=== PATIENT | female | born 1975 | race Caucasian/White ===

== ENCOUNTER 2016-10-19 08:56 | Inpatient (IN) | payer MEDICAID ==
[~2016-10-19] VITALS: Ht 157.5 cm; Wt 83.5 kg
[2016-10-19] MEDS ORDERED: fentaNYL 0.05 MG/ML VIAL ONE (15:33)
[2016-10-19] MEDS ORDERED: HYDROmorphone PFS 2 MG/ML SYR ONE (15:33)
[2016-10-19] MEDS ORDERED: NEOSTIGMINE 1:1000 10 MG/10 ML VIAL IM ONE (15:34)
[2016-10-19] MEDS ORDERED: GLYCOPYRROLATE 0.2 MG/ML VIAL IV ONE (15:34)
[2016-10-19] MEDS ORDERED: DESFLURANE 240 ML BTL INH ONE (15:34)
[2016-10-19] MEDS ORDERED: DEXAMETHASONE 4 MG/ML VIAL IVP ONE (15:34)
[2016-10-19] MEDS ORDERED: ONDANSETRON 4 MG/2 ML VIAL IVP ONE (15:34)
[2016-10-19] MEDS ORDERED: ROCURONIUM 50 MG/5 ML VIAL IV ONE (15:34)
[2016-10-19] MEDS ORDERED: PROPOFOL 200 MG/20 ML VIAL IV ONE (15:34)
[2016-10-19] MEDS ORDERED: KETOROLAC 30 MG/ML VIAL IVP ONE (15:34)
[2016-10-19] MEDS ORDERED: BUPIVACAINE-MPF/EPI 0.25% 30 ML VIAL INJ ONE (15:47)
[2016-10-19] MEDS ORDERED: METHYLENE BLUE 1% 10 MG/ML AMP ONE (16:02)
[2016-10-19] MEDS ORDERED: ONDANSETRON 4 MG/2 ML VIAL IVP PRN (16:15)
[2016-10-19] MEDS ORDERED: HYDROmorphone 1 MG/ML AMP IVP PRN (16:15)
[2016-10-19] MEDS ORDERED: LACTATED RINGERS 1,000 ML IV SCH (17:23)
[2016-10-19] MEDS ORDERED: diphenhydrAMINE 50 MG/ML VIAL IVP PRN (17:25)
[2016-10-19] MEDS ORDERED: HYDROcodone/APAP 5/325 MG 1 TAB TAB PO PRN (17:55)
[2016-10-19] MEDS ORDERED: ACETAMINOPHEN 325 MG TAB PO PRN (17:55)
[2016-10-19] MEDS ORDERED: MORPHINE SULFATE 2 MG/ML SYR IVP PRN (17:55)
[2016-10-19] MEDS ORDERED: ONDANSETRON 4 MG/2 ML VIAL IV PRN (17:55)
[2016-10-19] MEDS ORDERED: MORPHINE SULFATE 4 MG/ML SYR IV PRN (17:55)
[2016-10-19 19:10] VITALS: BP 117/64
--- NOTE | 2016-10-19 19:10 | NUR ---
RECEIVED REPORT FROM OR NURSE FOR CONTINUITY OF CARE. PATIENT IS A&OX4, DROWSY FROM PROCEDURE BUT AWAKENS EASILY. DISCUSSED PLAN OF CARE WITH PATIENT AND ORIENTED TO ROOM, VERBALIZED UNDERSTANDING. SHIFT ASSESSMENT DONE, VS TAKEN, STABLE AT THIS TIME. PT C/O NAUSEA, WILL MEDICATE PER MD ORDER. NO S/S OF RESPIRATORY DISTRESS NOTED ON ROOM AIR O2 SAT 90-94%. IV TO LT HAND 20 GAUGE PATENT AND INFUSING FLUIDS WELL. PT HAS 3 INDU DRAINS WITH MINIMAL SANGUINEOUS DRAINAGE NOTED. PT HAS BINDER AROUND CHEST S/P RT MODIFIED MASTECTOMY AND LT SIMPLE MASTECTOMY. PORTACATH TO LT CHEST FROM PREVIOUS CHEMOTHERAPY. SAFETY/FALL/RESTRICTED EXTREMITY PRECAUTIONS ENFORCED AND WRISTBANDS APPLIED. SCDS IN PLACE. CALL LIGHT PLACED WITHIN REACH. FAMILY MEMBERS AT BEDSIDE. WILL CONTINUE TO MONITOR.
--- NOTE | 2016-10-19 19:25 | NUR ---
MEDICATED PATIENT WITH PRN ZOFRAN. PROVIDED CHANGE OF GOWN AND LINENS.
[2016-10-19] MEDS: NACL 0.9% 1,000 ML IV SCH (20:14)
--- NOTE | 2016-10-19 20:27 | NUR ---
DUE IV ANTIBIOTICS ADMINISTERED AND REPLACED FLUIDS TO NS PER MD ORDER.
[2016-10-19] MEDS: HYDROmorphone 1 MG/ML AMP IVP PRN (21:11)
--- NOTE | 2016-10-19 21:11 | NUR ---
PATIENT AMBULATED TO RESTROOM, VOIDED. PERFORMED PM CARE AT SINK. C/O 10/10 PAIN IN CHEST, MEDICATED PER MD ORDER.
--- NOTE | 2016-10-19 23:45 | NUR ---
VS TAKEN, STABLE. ASSISTED PATIENT TO RESTROOM, BOWEL MOVEMENT. PATIENT BACK IN BED AND MADE COMFORTABLE. CALL LIGHT WITHIN REACH.
[2016-10-20] VITALS: BP 122/60
--- NOTE | 2016-10-20 01:49 | NUR ---
PT IS SLEEPING. NO S/S OF DISTRESS OR DISCOMFORT NOTED.
[2016-10-20] MEDS: HYDROmorphone 1 MG/ML AMP IVP PRN ×4 (03:26→18:41)
--- NOTE | 2016-10-20 03:30 | NUR ---
PT HAD C/O 10/10 PAIN IN CHEST, MEDICATED PER MD ORDER. EMPTIED INDU DRAIN TO LT SIDE 25ML SANGUINOUS DRAINAGE.
[2016-10-20] MEDS: NACL 0.9% 1,000 ML IV SCH (05:08)
--- NOTE | 2016-10-20 05:55 | NUR ---
REPLACED IV FLUIDS. EMPTIED INDU DRAIN, LT SIDE INDU DRAINED 15 ML SANGUINOUS DRAINAGE, RT SIDE 40 ML SANGUINOUS BETWEEN BOTH DRAINS.
--- NOTE | 2016-10-20 07:20 | NUR ---
ENDORSED PATIENT TO DAYSHIFT RN FOR CONTINUITY OF CARE. PATIENT IS STABLE.
--- NOTE | 2016-10-20 07:21 | NUR ---
RECEIVED REPORT FROM THE DIRECTOR DECISION SUPPORT NURSE AT BEDSIDE. PT IS ALERT AND ORIENTED. NO SIGNS OF DISTRESS. NOTED THE 3 INDU DRAINS. PORTACATH ON R CHEST AND IV ON L HAND 20G NS RUNNING AT 70ML/HR. PT HAS NO COMPLAINTS AT THIS TIME. WILL BE BACK TO GET V/S AND FURTHER ASSESS PT.
[2016-10-20 08:00] VITALS: BP 115/65
--- NOTE | 2016-10-20 08:15 | NUR ---
V/S WITHIN IN NORMAL RANGE. NOTED THE BINDERS STILL IN PLACE. NOTED SOME SERISANGUINOUS DRAINAGE IN HER DRAINS. PORT-A-CATH IN PLACE. IV STILL INTACT AND DRY AND PATENT. IV INFUSING AT 70ML/HR. PT IS IN PAIN. WILL MEDICATE REQUESTED. WILL BE BACK WITH MORNING MEDS.
--- NOTE | 2016-10-20 09:11 | NUR ---
ADMINISTERED PAIN MED, DILAUDID 1MG IVP. PT TOLERATED WELL. WILL REASSESS PT. PT RESTING SUPINE, NO OTHER COMPLAINTS. ALL NEEDS MET AT THIS TIME. SAFETY PRECAUTIONS MET. WILL CONTINUE TO MONITOR.
--- NOTE | 2016-10-20 10:31 | NUR ---
PT RESTING COMFORTABLY. WATCHING TV. WILL CONTINUE TO MONITOR.
--- NOTE | 2016-10-20 11:08 | NUR ---
PATIENT HAS BEEN SCREENED AND CATEGORIZED LOW NUTRITION RISK. PATIENT WILL BE SEEN WITHIN 7 DAYS OF ADMISSION. 10/26/[address]
--- NOTE | 2016-10-20 12:50 | NUR ---
PT NEEDED TO BE PULLED UP TO SIT UP TO EAT. PT EATING LUNCH. NO COMPLAINTS AT THIS TIME. FAMILY AT BEDSIDE. WILL CONTINUE TO MONITOR.
--- NOTE | 2016-10-20 15:30 | NUR ---
PT SLEEPING SOUNDLY WITH FAMILY MEMBER AT BEDSIDE. NOTED NO SIGNS OF DISTRESS. WILL CONTINUE TO MONITOR.
[2016-10-20 16:03] VITALS: BP 121/77
--- NOTE | 2016-10-20 17:30 | NUR ---
PT IS RESTING WITH SPOUSE AT BEDSIDE. NO SIGNS OF DISTRESS. WILL CONTINUE TO MONITOR.
--- NOTE | 2016-10-20 19:20 | NUR ---
ENDORSED PT TO THE BIOLOGY ADJUNCT INSTRUCTOR NURSE AT BEDSIDE FOR CONTINUITY OF CARE. PT IS ON THE PHONE WITH SPOUSE AT BEDSIDE. PT IS IN STABLE CONDITION.
--- NOTE | 2016-10-20 19:25 | NUR ---
RECEIVED FROM AM RN IN BED SITTING UP POSITION ON THE PHONE ALERT AND ORIENTED. CALL LIGHT WITH IN USE. SPOUSE AT BEDSIDE. COSTA RICAN SPEAKING. CARE PLANS FOR THE NIGHT DISCUSSED WITH THEM. INDU IN PLACE RIGHT AND LEFT. SEROUS SANGUINOUS OUTPUT. DRESSING TO BREAST INTACT AND NO BLEEDING NOTED. ENCOURAGED TO CALL FOR ANY DOLOR SHE MIGHT HAVE. "SI" . IVF SITE LEFT HAND #20 INTACT AND NO INFILTRATION.
--- NOTE | 2016-10-20 21:10 | NUR ---
Gladys CONTE CALLED AND DISCHARGED PT. TO HOME TONIGHT. NO PRESCRIPTIONS GIVEN . WITH ORDERS TO JUST SEE HIM IN HIS OFFICE TOMORROW. INFORMED PT. AND . PT.S STATED THAT THEY WILL GO HOME TONIGHT.
--- NOTE | 2016-10-20 21:42 | NUR ---
DISCHARGED TO HOME AND WHEELED TO THE FRONT BY SACK KEEPER ACCOMPANIED BY SPOUSE IN A PRIVATE CAR. DRESSING TO BREAST S/P MASTECTOMY INTACT. NO BLEEDING NOTED. INDU RIGHT 30 ML OUTPUT SEROUS SANGUINOUS FOR BOTH AND LEFT INTACT 10 ML SEROUS SANGUINOUS OUTPUT. PT.'S SPOUSE GIVEN DISCHARGE EDUCATION S/P MASTECTOMY AND INDU OUTPUT CARE AND MEASUREMENT TILL TOMORROW PRIOR APPOINTMENT WITH Gladys CONTE. ALL BELONGINGS WITH PT. AND NOTHING LEFT BEHIND. IVF SITE DISCONTINUED. TIP INTACT AND TOLERATED WELL. BAND AID DRESSING APPLIED . NO COMPLAINTS DONE. DISCHARGE PAPER WORKS GIVEN AND EXPLAINED.
== END 2016-10-20 22:10 | disposition home or self-care (01) | DRG 362 ==
LOC: MMU 09:01 → MTU 20:23
PROVIDERS: ADMIT Surgery; ATTEND Surgery
PROC: 0HTV0ZZ Resection of Bilateral Breast, Open Approach (ICD-10-PCS; principal; 2016-10-19 09:30)
DX: C50.911 Malignant neoplasm of unspecified site of right female breast (principal); F32.9 Major depressive disorder, single episode, unspecified; Z40.01 Encounter for prophylactic removal of breast; Z92.21 Personal history of antineoplastic chemotherapy; Z15.01 Genetic susceptibility to malignant neoplasm of breast

== ENCOUNTER 2017-03-22 07:49 | Day surgery (SDC) | payer MEDICAID ==
[2017-03-18 10:12] LABS: BASOPHILS # (AUTO) 0.1 K/uL (0.00-0.22); BASOPHILS % (AUTO) 0.8 % (0.0-2.0); EOSINOPHILS # (AUTO) 0.2 K/uL (0-0.4); EOSINOPHILS % (AUTO) 2.5 % (0.0-4.0); HEMOGLOBIN 14.1 g/dL (12.0-16.0); LYMPHOCYTES # (AUTO) 1.3 K/uL (2.5-16.5); LYMPHOCYTES % (AUTO) 18.6 % (20.5-51.1); MEAN CORPUSCULAR HEMOGLOBIN 29 pg (27-31); MEAN CORPUSCULAR HGB CONC 34 g/dL (33-37); MEAN CORPUSCULAR VOLUME 87 fL (80-94); MONOCYTES # (AUTO) 0.4 K/uL (0.8-1.0); MONOCYTES % (AUTO) 6.1 % (1.7-9.3); NEUTROPHILS # (AUTO) 5.2 K/uL (1.8-7.7); PLATELET COUNT (AUTO) 248 K/uL (140-450); RED BLOOD CELL COUNT(AUTO) 4.82 MIL/uL (4.20-5.40); RED CELL DISTRIBUTION WIDTH 13.3 % (11.6-13.7); WHITE BLOOD COUNT (AUTO) 7.2 K/uL (4.8-10.8)
[2017-03-18 10:29] LABS: ALBUMIN 3.7 g/dL (3.4-5.0); ANION GAP 11.6 (8-16); CALCIUM 8.2 mg/dL (8.5-10.1); CARBON DIOXIDE 28.4 mmol/L (21-32); CREATININE 0.6 mg/dL (0.6-1.3); TOTAL BILIRUBIN 0.4 mg/dL (0.0-1.0); TOTAL PROTEIN, SERUM 7.7 g/dL (6.4-8.2)
[~2017-03-22] VITALS: Ht 160 cm; Wt 83.9 kg
[2017-03-22] MEDS ORDERED: PROPOFOL 200 MG/20 ML VIAL IV ONE (11:20)
[2017-03-22] MEDS ORDERED: MIDAZOLAM 2 MG/2 ML VIAL ONE (11:29)
[2017-03-22] MEDS ORDERED: fentaNYL 0.05 MG/ML VIAL ONE (11:29)
[2017-03-22] MEDS ORDERED: BUPIVACAINE-MPF/EPI 0.25% 30 ML VIAL INJ ONE (11:36)
[2017-03-22] MEDS ORDERED: LIDOCAINE 1% 50 ML ONE (11:36)
[2017-03-22] MEDS ORDERED: HYDROmorphone 1 MG/ML AMP IVP PRN ×2 (12:00→14:15)
[2017-03-22] MEDS ORDERED: ONDANSETRON 4 MG/2 ML VIAL IVP PRN (12:00)
[2017-03-22] MEDS ORDERED: MORPHINE SULFATE 4 MG/ML SYR IV PRN (14:15)
[2017-03-22] MEDS ORDERED: HYDROcodone/APAP 5/325 MG 1 TAB TAB PO PRN (14:15)
[2017-03-22] MEDS ORDERED: MORPHINE SULFATE 2 MG/ML SYR IVP PRN (14:15)
== END 2017-03-22 13:45 | disposition home or self-care (01) ==
LOC: MOR 07:49 → MMU 07:50 → MOR 13:45
PROVIDERS: ATTEND Surgery
DX: Z45.2 Encounter for adjustment and management of vascular access device (principal); Z85.3 Personal history of malignant neoplasm of breast; I12.9 Hypertensive chronic kidney disease with stage 1 through stage 4 chronic kidney disease, or unspecified chronic kidney disease; E11.22 Type 2 diabetes mellitus with diabetic chronic kidney disease; N18.9 Chronic kidney disease, unspecified; D64.9 Anemia, unspecified; F03.90 Unspecified dementia, unspecified severity, without behavioral disturbance, psychotic disturbance, mood disturbance, and anxiety; J45.909 Unspecified asthma, uncomplicated; G40.909 Epilepsy, unspecified, not intractable, without status epilepticus; K21.9 Gastro-esophageal reflux disease without esophagitis; E66.9 Obesity, unspecified; F32.9 Major depressive disorder, single episode, unspecified; F17.210 Nicotine dependence, cigarettes, uncomplicated
CPT/HCPCS: 36415; 36590; 71010; 80053; 81025; 85025; 88300; 93005; J0690; J2001; J2250; J2704; J3010; J3490; J7060; J7120

== ENCOUNTER 2018-02-27 08:00 | Day surgery (SDC) | payer OTHER ==
[~2018-02-27] VITALS: Ht 160 cm; Wt 78.9 kg
[2018-02-27] MEDS ORDERED: BUPIVACAINE-MPF 0.25% 30 ML VIAL INJ ONE (11:29)
[2018-02-27] MEDS ORDERED: SEVOFLURANE 250 ML BTL INH ONE (11:40)
[2018-02-27] MEDS ORDERED: DEXAMETHASONE 4 MG/ML VIAL ONE (11:40)
[2018-02-27] MEDS ORDERED: ROCURONIUM 50 MG/5 ML VIAL IV ONE (11:40)
[2018-02-27] MEDS ORDERED: ONDANSETRON 4 MG/2 ML VIAL ONE (11:40)
[2018-02-27] MEDS ORDERED: PROPOFOL 200 MG/20 ML VIAL IV ONE (11:40)
[2018-02-27] MEDS ORDERED: SUCCINYLCHOLINE CHLORIDE 200 MG/10 ML VIAL IVP ONE (11:40)
[2018-02-27] MEDS ORDERED: MIDAZOLAM 2 MG/2 ML VIAL ONE (11:42)
[2018-02-27] MEDS ORDERED: fentaNYL 0.05 MG/ML VIAL ONE (11:43)
[2018-02-27] MEDS ORDERED: MEPERIDINE 50 MG/ML SYR ONE (11:43)
[2018-02-27] MEDS ORDERED: LACTATED RINGERS 1,000 ML IV SCH (12:23)
[2018-02-27] MEDS ORDERED: MEPERIDINE 25 MG/ML SYR IVP PRN (12:25)
[2018-02-27] MEDS ORDERED: ONDANSETRON 4 MG/2 ML VIAL IVP PRN (12:25)
[2018-02-27] MEDS ORDERED: diphenhydrAMINE 50 MG/ML VIAL IVP PRN (12:25)
[2018-02-27] MEDS ORDERED: NACL 0.9% 1,000 ML IV SCH (12:53)
[2018-02-27] MEDS ORDERED: MORPHINE SULFATE 2 MG/ML SYR IVP PRN (12:55)
[2018-02-27] MEDS ORDERED: HYDROmorphone 1 MG/ML AMP IVP PRN (12:55)
[2018-02-27] MEDS ORDERED: MORPHINE SULFATE 4 MG/ML SYR IV PRN (12:55)
[2018-02-27] MEDS ORDERED: ONDANSETRON 4 MG/2 ML VIAL IV PRN (12:55)
[2018-02-27] MEDS ORDERED: HYDROcodone/APAP 5/325 MG 1 TAB TAB PO PRN (12:55)
[2018-02-27] MEDS: HYDROmorphone 1 MG/ML AMP IVP PRN ×4 (13:08→13:39)
[2018-02-27] MEDS ORDERED: HYDROmorphone PFS 2 MG/ML SYR ONE (13:10)
== END 2018-02-27 15:40 | disposition home or self-care (01) ==
LOC: MDS 08:00 → MMU 08:01 → MDS 15:40
PROVIDERS: ATTEND Surgery
DX: K82.4 Cholesterolosis of gallbladder (principal); F32.9 Major depressive disorder, single episode, unspecified; I12.9 Hypertensive chronic kidney disease with stage 1 through stage 4 chronic kidney disease, or unspecified chronic kidney disease; N18.4 Chronic kidney disease, stage 4 (severe); E66.01 Morbid (severe) obesity due to excess calories; Z68.30 Body mass index [BMI] 30.0-30.9, adult; Z85.3 Personal history of malignant neoplasm of breast; Z90.13 Acquired absence of bilateral breasts and nipples; J45.909 Unspecified asthma, uncomplicated; F03.90 Unspecified dementia, unspecified severity, without behavioral disturbance, psychotic disturbance, mood disturbance, and anxiety; G40.909 Epilepsy, unspecified, not intractable, without status epilepticus; E11.22 Type 2 diabetes mellitus with diabetic chronic kidney disease; D64.9 Anemia, unspecified; K21.9 Gastro-esophageal reflux disease without esophagitis; F17.210 Nicotine dependence, cigarettes, uncomplicated; Z80.3 Family history of malignant neoplasm of breast
CPT/HCPCS: 36415; 47562; 71045; 82374; 86886; 86900; 86901; 93005; J0330; J0690; J1100; J1170; J2250; J2405; J2704; J3010; J3490; J7030; J7060; J7120; J2175